=== PATIENT | male | born 1990 | race Caucasian/White ===

== ENCOUNTER 2023-02-18 09:37 | Emergency (ER) | payer MEDICAID ==
[~2023-02-18] VITALS: Ht 167.6 cm; Wt 79.0 kg
[2023-02-18 09:51] VITALS: BP 170/111
[2023-02-18 10:05] LABS: BASOPHILS % 0.5 % (0.0-2.0); EOSINOPHILS % 1.1 % (0.0-5.0); HEMATOCRIT. 49.9 % (42.0-52.0); LYMPHOCYTES % 32.1 % (20.0-50.0); MEAN CORPUSCULAR HEMOGLOBIN 30.2 pg (28.0-32.0); MEAN CORPUSCULAR VOLUME 88.7 fL (80.0-94.0); MEAN PLATELET VOLUME 8.2 fl (7.4-10.4); MONOCYTES % 5.7 % (2.0-8.0); NEUTROPHILS % 60.6 % (40.0-76.0); PLATELET 254 x1000/uL (130-400); RED BLOOD CELL COUNT 5.63 mill/uL (4.7-6.1); RED CELL DISTRIBUTION WIDTH 13.7 % (11.6-14.6)
[2023-02-18 10:17] LABS: CHLORIDE 107 mEq/L (98-107)
[2023-02-18 10:25] LABS: ETHANOL BLOOD < 10 mg/dL
[2023-02-18] MEDS ORDERED: LEVETIRACETAM 1000MG PREMIX 100 ML IV ONE (10:45)
[2023-02-18 11:50] LABS: CLARITY URINE CLEAR (CLEAR); COLOR URINE YELLOW (YELLOW); KETONES URINE TRACE (NEGATIVE); LEUKOCYTE ESTERASE URINE NEGATIVE (NEGATIVE); NITRITE URINE NEGATIVE (NEGATIVE); OCCULT BLOOD URINE 1+ (NEGATIVE); PH URINE 6.5 (4.5-8.0); PROTEIN URINE NEGATIVE (NEGATIVE); SPECIFIC GRAVITY URINE 1.019 (1.005-1.030); UROBILINOGEN URINE 0.2 E.U./dL (0.2-1.0)
[2023-02-18] MEDS ORDERED: IBUPROFEN 600MG TABLET PO ONE (13:00)
[2023-02-18 13:04] LABS: *AMPHETAMINES SCREEN URINE NEGATIVE (NEGATIVE); *BARBITURATES SCREEN URINE NEGATIVE (NEGATIVE); *BENZODIAZEPINES SCREEN URINE NEGATIVE (NEGATIVE); *COCAINE SCREEN URINE NEGATIVE (NEGATIVE); CANNABINOID URINE SCREEN NEGATIVE (NEGATIVE); METHADONE URINE SCREEN NEGATIVE (NEGATIVE); OPIATES URINE SCREEN NEGATIVE (NEGATIVE); PHENCYCLIDINE URINE SCREEN NEGATIVE (NEGATIVE)
== END 2023-02-18 13:13 | disposition home or self-care (01) ==
LOC: ER 10:09
DX: G40.509 Epileptic seizures related to external causes, not intractable, without status epilepticus (principal)
CPT/HCPCS: 36415; 70450; 80053; 80305; 80320; 81003; 85025; 96365; 99285; J1953; Z7610; G0480